=== PATIENT | male | born 1950 | race Two or more races ===

== ENCOUNTER 2018-03-16 11:22 | Outpatient (CLI) | payer MEDICAID, MEDICARE ==
[2018-03-16 19:18] LABS: BASOPHILS # (AUTO) 0.1 10^3/uL (0.0-0.1); BASOPHILS % (AUTO) 1.3 %; EOSINOPHILS # (AUTO) 0.2 10^3/uL (0.0-0.7); HGB - HEMOGLOBIN 17.4 g/dL (14.0-18.0); LYMPHOCYTES # (AUTO) 2.1 10^3/uL (1.5-3.5); LYMPHOCYTES % (AUTO) 20.9 %; MEAN CORPUSCULAR HGB CONC 32.6 g/dL (32.0-36.0); MEAN CORPUSCULAR VOLUME 85.7 fL (80.0-94.0); MEAN PLATELET VOLUME 8.1 fL (7.4-11.4); MONOCYTES # (AUTO) 0.5 10^3/uL (0.0-1.0); NEUTROPHILS # (AUTO) 7.1 10^3/uL (1.5-6.6); NEUTROPHILS % (AUTO) 70.8 %; RED BLOOD COUNT 6.23 10^6/uL (4.70-6.10)
[2018-03-16 19:43] LABS: ALBUMIN 4.5 g/dL (3.2-5.5); BILIRUBIN,TOTAL 0.9 mg/dL (0.2-1.0); CALCIUM 9.4 mg/dL (8.5-10.3); CREATININE 1.1 mg/dL (0.6-1.2); TOTAL PROTEIN 8.9 g/dL (6.7-8.2)
[2018-03-16 20:04] LABS: HB2 TOTAL 19.6 g/dL; HEMOGLOBIN A1C 2.01 g/dL; HEMOGLOBIN A1C % 11.5 % (4.6-6.2)
== END 2018-03-16 11:23 | disposition home or self-care (01) ==
LOC: LAB.N 11:22
PROVIDERS: ATTEND Family Medicine
DX: R63.4 Abnormal weight loss (principal); E11.65 Type 2 diabetes mellitus with hyperglycemia
CPT/HCPCS: 36415; 80053; 83036; 84443; 85025

== ENCOUNTER 2019-02-19 11:14 | Emergency (ER) | payer MEDICARE ==
[2019-02-19 12:00] LABS: BASOPHILS # (AUTO) 0.2 10^3/uL (0.0-0.1); BASOPHILS % (AUTO) 1.1 %; EOSINOPHILS # (AUTO) 0.1 10^3/uL (0.0-0.7); EOSINOPHILS % (AUTO) 0.2 %; HGB - HEMOGLOBIN 14.3 g/dL (14.0-18.0); LYMPHOCYTES # (AUTO) 1.5 10^3/uL (1.5-3.5); LYMPHOCYTES % (AUTO) 7.1 %; MEAN CORPUSCULAR HEMOGLOBIN 27.8 pg (27.0-31.0); MEAN CORPUSCULAR HGB CONC 32.7 g/dL (32.0-36.0); MEAN PLATELET VOLUME 8.4 fL (7.4-11.4); MONOCYTES # (AUTO) 1.2 10^3/uL (0.0-1.0); MONOCYTES % (AUTO) 5.6 %; NEUTROPHILS # (AUTO) 17.8 10^3/uL (1.5-6.6); PLT - PLATELET COUNT 420 10^3/uL (130-450); RED BLOOD COUNT 5.13 10^6/uL (4.70-6.10); RED CELL DISTRIBUTION WIDTH 13.9 % (12.0-15.0); WHITE BLOOD COUNT 20.7 x10^3/uL (4.8-10.8)
--- NOTE | 2019-02-19 12:04 | XRAY Report ---
Reason: soa, weak, fatigued Procedure Date: 02/19/2019 Accession Number: [id number] / [id number] Procedure: XR - Chest 1 View X-Ray CPT Code: 77567 FULL RESULT: EXAM: CHEST RADIOGRAPHY EXAM DATE: 02/19/2019 11:45 AM. CLINICAL HISTORY: Faint, weakness, frequent falls, shortness of breath. COMPARISON: None. TECHNIQUE: 1 view. FINDINGS: Lungs/Pleura: No focal opacities evident. No pleural effusion. No pneumothorax. Mediastinum: Within exam limitations, the cardiomediastinal contour is normal. Other: None. IMPRESSION: Normal single view chest. RADIA
[2019-02-19 12:14] LABS: ALBUMIN 3.3 g/dL (3.2-5.5); ALBUMIN/GLOBULIN RATIO 0.6 (1.0-2.2); BILIRUBIN,TOTAL 1.5 mg/dL (0.2-1.0); CALCIUM 9.1 mg/dL (8.5-10.3); CREATININE 1.8 mg/dL (0.6-1.2); TOTAL PROTEIN 8.6 g/dL (6.7-8.2)
[2019-02-19 12:19] LABS: PLATELET MORPHOLOGY RARE PLATELET CLUMPS (NORMAL)
[2019-02-19 12:20] LABS: PLATELET ESTIMATE, MANUAL NORMAL (130-450,000) (NORMAL); RBC MORPHOLOGY (MULTIPLE) NORMAL APPEARANCE (NORMAL)
[2019-02-19] MEDS ORDERED: SODIUM CHLORIDE 0.9% 1,000 ML IV ONE (12:38)
[2019-02-19] MEDS ORDERED: CEFEPIME 2 GM in SODIUM CHLORIDE 0.9% MINIBAG 100 ML IV STA (12:38)
[2019-02-19] MEDS ORDERED: VANCOMYCIN INJ 1.5 GM in SODIUM CHLORIDE 0.9% 500 ML IV STA (12:38)
--- NOTE | 2019-02-19 12:42 | ED Physician Documentation ---
PD HPI ALTERED MENTAL STATUS - Stated complaint Stated Complaint: DIZZY, LIGHT HEADED - Chief complaint Chief Complaint: Neuro - History obtained from History obtained from: Patient, Family - History of Present Illness Timing - onset: Other (68-year-old gentleman with history of type 2 diabetes presents with multiple complaints. His right leg is been hurting for quite some time, may be 2 weeks to a month. More recently he started having chills and shakes and over the last few days has been dizzy and off balance and falling twice without injury. He complains of slight shortness of breath. His diabetes has been controlled. He has a wound on the right foot that is been there for months but he picked at it a couple of weeks ago and a lot of skin came off and it started bleeding.) Review of Systems Constitutional: reports: Chills, Fatigue. denies: Fever Nose: denies: Rhinorrhea / runny nose, Congestion Cardiac: denies: Chest pain / pressure, Palpitations Respiratory: reports: Dyspnea. denies: Cough GI: denies: Abdominal Pain, Nausea, Vomiting, Diarrhea : denies: Dysuria, Frequency Musculoskeletal: denies: Neck pain, Back pain PD PAST MEDICAL HISTORY - Past Medical History Past Medical History: Yes Endocrine/Autoimmune: Type 2 diabetes - Allergies Allergies/Adverse Reactions: Allergies Allergy/AdvReac Type Severity Reaction Status Date / Time No Known Drug Allergies Allergy Verified 02/19/19 11:32 - Living Situation Living Situation: reports: With family - Social History Does the pt smoke?: No Does the pt have substance abuse?: Yes - Family History Family history: reports: Non contributory PD ED PE NORMAL - Vitals Vital signs reviewed: Yes - General General: Alert and oriented X 3, Other (Ill-appearing gentleman who is tremulous) - HEENT HEENT: PERRL, EOMI, Other (There is a lump over the right jaw, the daughter says it has been there since she was a baby) - Neck Neck: Supple, no meningeal sign, No bony TTP - Cardiac Cardiac: Other (Tachycardic but regular without murmur) - Respiratory Respiratory: No respiratory distress, Clear bilaterally - Abdomen Abdomen: Soft, Non tender - Back Back: No CVA TTP, No spinal TTP - Derm Derm: Normal color, Warm and dry - Extremities Extremities: Other (There is a wound over the distal fifth metatarsal of the right foot that is deep and foul-smelling. It was cultured during exam. There is cellulitis of the foot. Quite tender to the calf and thigh, but no cellulitis there or asymmetric edema.) - Neuro Neuro: Alert and oriented X 3, Normal speech Results - Vitals Vitals: Vital Signs - 24 hr 02/19/19 02/19/19 02/19/19 11:18 11:52 12:02 Temperature 36.8 C Heart Rate 113 H 93 92 Respiratory 20 20 12 Rate Blood Pressure 105/71 154/91 H 160/88 H O2 Saturation 100 100 92 02/19/19 02/19/19 02/19/19 13:00 13:32 14:30 Temperature Heart Rate 101 H 101 H 95 Respiratory 18 24 14 Rate Blood Pressure 171/91 H 171/89 H 160/83 H O2 Saturation 97 99 95 02/19/19 14:42 Temperature Heart Rate 97 Respiratory 14 Rate Blood Pressure 159/87 H O2 Saturation 100 Oxygen O2 Source Room air - EKG (time done) 1125 Rate: Rate (enter#) (106) Rhythm: Sinus tachycardia [place]: LAD Intervals: Normal MA QRS: Normal Ischemia: Q waves (inferior). No: ST elevation c/w ischemia Compare to prior EKG: Old EKG unavailable Computer interpretation: Disagree with computer - Labs Labs: Microbiology 02/19/19 12:25 Wound Culture - Preliminary Foot - Right Laboratory Tests 02/19/19 02/19/19 02/19/19 11:22 11:46 11:50 WBC 20.7 H RBC 5.13 Hgb 14.3 Hct 43.6 MCV 85.0 MCH 27.8 MCHC 32.7 RDW 13.9 Plt Count 420 MPV 8.4 Neut # (Auto) 17.8 H Lymph # (Auto) 1.5 [place] # (Auto) 1.2 H Eos # (Auto) 0.1 Baso # (Auto) 0.2 H Absolute Nucleated RBC 0.01 Nucleated RBC % 0.1 Manual Slide Review Indicated Platelet Estimate NORMAL (130-450,000) Platelet Morphology RARE PLATELET CLUMPS RBC Morph Micro Appear NORMAL APPEARANCE Sodium Potassium Chloride Carbon Dioxide Anion Gap BUN Creatinine Estimated GFR (MDRD) Glucose POC Whole Bld Glucose 214 H 241 H Lactic Acid Calcium Total Bilirubin AST ALT Alkaline Phosphatase Troponin I C-Reactive Protein Total Protein Albumin Globulin Albumin/Globulin Ratio Lipase 02/19/19 02/19/19 02/19/19 11:50 11:50 11:50 WBC RBC Hgb Hct MCV MCH MCHC RDW Plt Count MPV Neut # (Auto) Lymph # (Auto) [place] # (Auto) Eos # (Auto) Baso # (Auto) Absolute Nucleated RBC Nucleated RBC % Manual Slide Review Platelet Estimate Platelet Morphology RBC Morph Micro Appear Sodium 132 L Potassium 4.3 Chloride 97 L Carbon Dioxide 20 L Anion Gap 15.0 H BUN 23 H Creatinine 1.8 H Estimated GFR (MDRD) 37 L Glucose 259 H POC Whole Bld Glucose Lactic Acid Calcium 9.1 Total Bilirubin 1.5 H AST 32 ALT 28 Alkaline Phosphatase 147 H Troponin I < 0.04 C-Reactive Protein 33.7 H Total Protein 8.6 H Albumin 3.3 Globulin 5.3 H Albumin/Globulin Ratio 0.6 L Lipase 24 02/19/19 12:54 WBC RBC Hgb Hct MCV MCH MCHC RDW Plt Count MPV Neut # (Auto) Lymph # (Auto) [place] # (Auto) Eos # (Auto) Baso # (Auto) Absolute Nucleated RBC Nucleated RBC % Manual Slide Review Platelet Estimate Platelet Morphology RBC Morph Micro Appear Sodium Potassium Chloride Carbon Dioxide Anion Gap BUN Creatinine Estimated GFR (MDRD) Glucose POC Whole Bld Glucose Lactic Acid 2.5 H Calcium Total Bilirubin AST ALT Alkaline Phosphatase Troponin I C-Reactive Protein Total Protein Albumin Globulin Albumin/Globulin Ratio Lipase - Rads (name of study) 1v chest Radiology: EMP read contemporaneously (Right 5th prox phalanx and distal 5th MT osteomyelitis and soft tissue gas.) PD MEDICAL DECISION MAKING - ED course ED course: 68-year-old gentleman presents with varied complaints with a subacute and now more acute decline. He appears ill and the only obvious physical finding is the right foot with a deep wound and cellulitis. X-ray there is consistent with necrotizing fasciitis. Case discussed by phone with the on-call orthopedic surgeon, Dr. Pollock at 1:05 PM. He recommends transfer as the patient does not fit criteria for admission to a critical access hospital given the 96-hour rule. Blood cultures were obtained and lactate and CRP were added on. He was administered cefepime, clindamycin, and vancomycin for broad-spectrum coverage for soft tissue infection. Accepted by Dr. James the hospitalist at [facility] at 1328 pending my consult with orthopedics there to make sure that he they feel he is appropriate for that facility. LRINEC score = 10 Dr Haynes is the trailhead construction worker ortho at [place], delay to talking with him as he is in the OR. He called back at approximately 2 PM and felt it was beyond their capabilities as well and recommended transfer to [facility]. Accepted by Dr Raul Mijares to [facility] at 1445 Departure - Departure Disposition: 02 Transfer Acute Care Hosp Clinical Impression: Necrotizing fasciitis Condition: Critical
[2019-02-19] MEDS ORDERED: CLINDAMYCIN 900 MG/50 ML 50 ML IV ONE (13:01)
[2019-02-19] MEDS ORDERED: IOVERSOL 320 100 ML VIAL IVP ONE (13:03)
--- NOTE | 2019-02-19 13:06 | XRAY Report ---
Reason: foot infection Procedure Date: 02/19/2019 Accession Number: [id number] / [id number] Procedure: XR - Foot 3 View RT CPT Code: FULL RESULT: EXAM: RIGHT FOOT RADIOGRAPHY EXAM DATE: 02/19/2019 12:55 PM. CLINICAL HISTORY: Foot infection. Diabetes. Foot wound. COMPARISON: None. TECHNIQUE: 3 views. FINDINGS: Bones: No acute fracture. Degenerative spurring. Patchy irregular lucency and erosive changes are seen involving the base of the right fifth proximal phalanx as well as the lateral margin of the right fifth metatarsal head at the fifth MTP joint. Posterior calcaneal spur. Joints: Mild right first MTP joint degenerative changes. No dislocation. Soft Tissues: Soft tissue edema and soft tissue defect along the lateral and plantar aspect of the right fifth MTP joint with extensive subcutaneous air/gas. No radiopaque foreign bodies. IMPRESSION: 1. Right fifth proximal phalanx and probable right fifth metatarsal head osteomyelitis at the right fifth MTP joint which can be seen with septic arthritis. 2. Soft tissue defect/ulceration and subcutaneous air/gas along the distal lateral right foot. RADIA
[2019-02-19] MEDS ORDERED: LACTATED RINGERS IV STA (13:15)
[2019-02-19] MEDS ORDERED: MORPHINE 2 MG/ML SYRINGE IVP STA (13:19)
[2019-02-19 15:20] VITALS: BP 159/78
== END 2019-02-19 15:43 | disposition short-term general hospital (02) ==
LOC: ED 11:14
DX: M72.6 Necrotizing fasciitis (principal); S91.301A Unspecified open wound, right foot, initial encounter; L03.115 Cellulitis of right lower limb; E11.69 Type 2 diabetes mellitus with other specified complication
CPT/HCPCS: 36415; 71045; 73630; 80053; 83605; 83690; 84484; 85025; 86140; 87040; 87070; 87077; 87181; 87205; 93005; 96365; 96366; 96368; 96375; 99284; 99285; J2270; J3370; J7120

== ENCOUNTER 2019-04-16 08:00 | Outpatient (CLI) | payer MEDICARE ==
[2019-04-16 14:57] LABS: CALCIUM 8.6 mg/dL (8.5-10.3); CREATININE 1.1 mg/dL (0.6-1.2)
[2019-04-16 15:23] LABS: HEMOGLOBIN A1C 0.9 g/dL; HEMOGLOBIN A1C % 7.6 % (4.6-6.2)
== END 2019-04-16 23:59 | disposition home or self-care (01) ==
LOC: LAB 08:00
PROVIDERS: ATTEND Family Medicine
DX: E11.65 Type 2 diabetes mellitus with hyperglycemia (principal)
CPT/HCPCS: 36415; 80048; 83036

== ENCOUNTER 2020-04-24 08:10 | Outpatient (CLI) | payer MEDICARE | END 2020-04-24 08:11 | disposition E | LOC: EMS 08:10 | PROVIDERS: ATTEND Surgery ==